=== PATIENT | male | born 1955 | race Hispanic/Latino ===

== ENCOUNTER 2020-06-17 11:10 | Emergency (ER) | payer BC ==
[~2020-06-17] VITALS: Ht 160 cm; Wt 89.8 kg
[2020-06-17 11:38] LABS: BASOPHILS # (AUTO) 0.1 (0.0-0.1); BASOPHILS % 0.7 % (0.0-1.0); EOSINOPHILS # (AUTO) 0.2 (0.0-0.4); EOSINOPHILS % 1.8 % (0.0-6.0); HEMATOCRIT 47.7 % (38.2-49.6); LYMPHOCYTES # (AUTO) 2.4 (1.0-3.2); LYMPHOCYTES % 21.3 % (18.0-39.1); MEAN CORPUSCULAR HEMOGLOBIN 29.6 pg (28-32); MEAN CORPUSCULAR HGB CONC 33.5 g/dL (31-35); MEAN CORPUSCULAR VOLUME 88.3 fL (81-99); MONOCYTES # (AUTO) 0.9 (0.2-0.8); NEUTROPHILS # (AUTO) 7.7 (2.1-6.9); NEUTROPHILS % 67.8 % (38.7-80.0); PLATELET COUNT 289 x10e3/uL (140-360); RED CELL DISTRIBUTION WIDTH 13.7 % (11.7-14.4)
[2020-06-17 11:53] LABS: ALANINE AMINOTRANSFERASE 20 IU/L (0-55); ALBUMIN/GLOBULIN RATIO 0.7 (0.8-2.0); ALKALINE PHOSPHATASE 61 IU/L (40-150); ANION GAP 14.6 mmol/L (8-16); BLOOD UREA NITROGEN 15 mg/dL (7-26); BUN/CREATININE RATIO 15 (6-25); CALCIUM 9.6 mg/dL (8.4-10.2); CARBON DIOXIDE 27 mmol/L (22-29); CHLORIDE 102 mmol/L (98-107); EST GLOMERULAR FILTRATION RATE > 60 ML/MIN (60-); GLUCOSE 99 mg/dL (74-118); POTASSIUM 3.6 mmol/L (3.5-5.1); SODIUM 140 mmol/L (136-145)
[2020-06-17] MEDS ORDERED: KETOROLAC TROMETHAMINE 30 MG/ML VIAL IV PRN (13:30)
[2020-06-17 13:33] LABS: CLARITY,URINE CLEAR (CLEAR); COLOR,URINE YELLOW (YELLOW)
[2020-06-17 13:34] LABS: KETONES,URINE NEGATIVE (NEGATIVE); LEUKOCYTE ESTERASE ,URINE NEGATIVE (NEGATIVE); NITRITE,URINE NEGATIVE (NEGATIVE); PROTEIN,URINE DIPSTICK >=300 (NEGATIVE); URINE UROBILINOGEN 0.2 mg/dL (0.2 - 1)
[2020-06-17 13:44] LABS: BACTERIA,URINE MODERATE /HPF; EPITHELIAL CELLS,URINE RARE /LPF; WBC,URINE (MAN) 0-5 /HPF (0-5)
[2020-06-17] MEDS ORDERED: CEPHALEXIN500 MG PO ×2 (14:05→14:25)
== END 2020-06-17 14:35 | disposition home or self-care (01) ==
LOC: ER 11:20
DX: N39.0 Urinary tract infection, site not specified (principal); I10 Essential (primary) hypertension
CPT/HCPCS: 36415; 74176; 80053; 81001; 83690; 85025; 99284; J1885

== ENCOUNTER → 2020-09-01 | Outpatient (CLI) | payer BC ==
[~2020-09-01] MED LIST: CEPHALEXIN500 MG PO; FUROSEMIDE40 MG PO; METOPROLOL SUCC50 MG PO; POTASSIUM CHLO20 ME1 PO; TRICOR145 MG PO; ZETIA10 MG PO
== END ==
LOC: RAD 13:06
PROVIDERS: ATTEND Family Medicine
DX: R60.9 Edema, unspecified (principal)
CPT/HCPCS: 36415; 85379; 93970

== ENCOUNTER 2020-09-02 10:59 | Inpatient (IN) | payer BC, MEDICARE ==
[~2020-09-02] VITALS: Ht 160 cm; Wt 83.6 kg
[~2020-09-02 10:59] MED LIST changes: -ASPIRIN81 MG PO; -FUROSEMIDE40 MG PO; -IOPAMIDOL 370 MG/ML 200 ML INFUS..BTL INJ ONE; -LOSARTAN POTAS100 MG PO; -METOPROLOL SUCC50 MG PO; -POTASSIUM CHLO20 ME1 PO; -SODIUM CHLORIDE 0.9% 100 ML ONE; -TRICOR145 MG PO; -ZETIA10 MG PO
[2020-09-02 12:13] LABS: BASOPHILS # (AUTO) 0.1 (0.0-0.1); BASOPHILS % 1.1 % (0.0-1.0); EOSINOPHILS # (AUTO) 0.2 (0.0-0.4); EOSINOPHILS % 2.6 % (0.0-6.0); HEMATOCRIT 50.1 % (38.2-49.6); LYMPHOCYTES # (AUTO) 1.8 (1.0-3.2); LYMPHOCYTES % 21.2 % (18.0-39.1); MEAN CORPUSCULAR HGB CONC 33.9 g/dL (31-35); MEAN CORPUSCULAR VOLUME 88.5 fL (81-99); MONOCYTES # (AUTO) 0.6 (0.2-0.8); MONOCYTES % 6.9 % (4.4-11.3); NEUTROPHILS # (AUTO) 5.7 (2.1-6.9); NEUTROPHILS % 67.8 % (38.7-80.0); PLATELET COUNT 249 x10e3/uL (140-360); RED BLOOD COUNT 5.66 x10e6/uL (4.3-5.7); RED CELL DISTRIBUTION WIDTH 13.8 % (11.7-14.4)
[2020-09-02 12:18] LABS: INR 0.74
[2020-09-02 12:25] LABS: ALANINE AMINOTRANSFERASE 19 IU/L (0-55); ALBUMIN 2.3 g/dL (3.5-5.0); ALBUMIN/GLOBULIN RATIO 0.6 (0.8-2.0); ALKALINE PHOSPHATASE 50 IU/L (40-150); ANION GAP 10.2 mmol/L (8-16); BLOOD UREA NITROGEN 16 mg/dL (7-26); BUN/CREATININE RATIO 15 (6-25); CALCIUM 8.9 mg/dL (8.4-10.2); CARBON DIOXIDE 31 mmol/L (22-29); CHLORIDE 102 mmol/L (98-107); CREATININE, SERUM 1.07 mg/dL (0.72-1.25); EST GLOMERULAR FILTRATION RATE > 60 ML/MIN (60-); GLUCOSE 93 mg/dL (74-118); POTASSIUM 4.2 mmol/L (3.5-5.1); SODIUM 139 mmol/L (136-145)
[2020-09-02] MEDS ORDERED: ONDANSETRON HCL INJ 2MG/ML 2ML 2 MG/ML VIAL IV PRN (12:30)
[2020-09-02] MEDS ORDERED: HEPARIN SOD (PORCINE) 1000 UNIT/ML SDV IV NR (13:00)
[2020-09-02] MEDS ORDERED: HEPARIN 25,000 UNIT DRIP IV ONE (13:17)
[2020-09-02] MEDS: HEPARIN 25,000 UNIT 1,300 UNIT in DEXTROSE 5% 250ML 250 ML IV SCH (13:21)
[2020-09-02] MEDS ORDERED: TRICOR145 MG PO (16:14)
[2020-09-02] MEDS ORDERED: ZETIA10 MG PO (16:14)
[2020-09-02] MEDS ORDERED: METOPROLOL SUCC50 MG PO (16:14)
[2020-09-02] MEDS ORDERED: FUROSEMIDE40 MG PO (16:14)
[2020-09-02] MEDS ORDERED: POTASSIUM CHLO20 ME1 PO (16:14)
[2020-09-02] MEDS ORDERED: HYDRALAZINE HCL 20 MG/ML VIAL IV STA (16:19)
[2020-09-02] MEDS ORDERED: HYDRALAZINE HCL 20 MG/ML VIAL ONE (16:31)
[2020-09-02 18:08] VITALS: BP 146/79
[2020-09-02] MEDS: MORPHINE SULFATE INJ 2 MG/ML SYR IV PRN ×2 (18:19→23:58)
[2020-09-02 18:30] VITALS: BP 146/79
[2020-09-02 19:12] VITALS: BP 146/79
[2020-09-02 20:03] VITALS: BP 123/73
[2020-09-02 20:18] VITALS: BP 133/73
[2020-09-02 23:44] VITALS: BP 166/88
[2020-09-03] VITALS (9 sets, daily range): BP systolic 136–192; BP diastolic 73–92
[2020-09-03 05:38] LABS: BASOPHILS # (AUTO) 0.1 (0.0-0.1); EOSINOPHILS # (AUTO) 0.3 (0.0-0.4); EOSINOPHILS % 4.2 % (0.0-6.0); HEMATOCRIT 44.5 % (38.2-49.6); HEMOGLOBIN 15.2 g/dL (14.0-18.0); LYMPHOCYTES # (AUTO) 1.9 (1.0-3.2); LYMPHOCYTES % 24.7 % (18.0-39.1); MEAN CORPUSCULAR HEMOGLOBIN 29.9 pg (28-32); MEAN CORPUSCULAR HGB CONC 34.2 g/dL (31-35); MEAN CORPUSCULAR VOLUME 87.6 fL (81-99); MONOCYTES # (AUTO) 0.6 (0.2-0.8); MONOCYTES % 7.5 % (4.4-11.3); NEUTROPHILS # (AUTO) 4.8 (2.1-6.9); NEUTROPHILS % 62.3 % (38.7-80.0); PLATELET COUNT 221 x10e3/uL (140-360); RED BLOOD COUNT 5.08 x10e6/uL (4.3-5.7); RED CELL DISTRIBUTION WIDTH 13.6 % (11.7-14.4)
[2020-09-03] MEDS: MORPHINE SULFATE INJ 2 MG/ML SYR IV PRN ×3 (05:44→13:46)
[2020-09-03 06:01] LABS: ALANINE AMINOTRANSFERASE 18 IU/L (0-55); ALBUMIN 1.9 g/dL (3.5-5.0); ALBUMIN/GLOBULIN RATIO 0.5 (0.8-2.0); ALKALINE PHOSPHATASE 45 IU/L (40-150); ANION GAP 12.8 mmol/L (8-16); BLOOD UREA NITROGEN 20 mg/dL (7-26); BUN/CREATININE RATIO 22 (6-25); CARBON DIOXIDE 25 mmol/L (22-29); CHLORIDE 106 mmol/L (98-107); CREATININE, SERUM 0.91 mg/dL (0.72-1.25); EST GLOMERULAR FILTRATION RATE > 60 ML/MIN (60-); GLUCOSE 100 mg/dL (74-118); POTASSIUM 3.8 mmol/L (3.5-5.1); SODIUM 140 mmol/L (136-145)
[2020-09-03] MEDS: EZETIMIBE 10 MG TAB PO SCH (08:37)
[2020-09-03] MEDS: METOPROLOL SUCCINATE 50 MG TAB XL PO SCH (08:37)
[2020-09-03] MEDS: FENOFIBRATE 145 MG TAB PO SCH (08:37)
[2020-09-03 19:27] LABS: CLARITY,URINE CLEAR (CLEAR); COLOR,URINE YELLOW (YELLOW); KETONES,URINE NEGATIVE (NEGATIVE); LEUKOCYTE ESTERASE ,URINE NEGATIVE (NEGATIVE); NITRITE,URINE NEGATIVE (NEGATIVE); PROTEIN,URINE DIPSTICK >=300 (NEGATIVE); URINE UROBILINOGEN 0.2 mg/dL (0.2 - 1)
[2020-09-03 19:37] LABS: BACTERIA,URINE RARE /HPF
[2020-09-04] VITALS (11 sets, daily range): BP systolic 137–171; BP diastolic 78–98
[2020-09-04] MEDS: HEPARIN 25,000 UNIT 1,300 UNIT in DEXTROSE 5% 250ML 250 ML IV SCH (05:55)
[2020-09-04 06:33] LABS: BASOPHILS # (AUTO) 0.1 (0.0-0.1); BASOPHILS % 1.1 % (0.0-1.0); EOSINOPHILS # (AUTO) 0.4 (0.0-0.4); EOSINOPHILS % 6.2 % (0.0-6.0); HEMATOCRIT 44.2 % (38.2-49.6); HEMOGLOBIN 14.7 g/dL (14.0-18.0); LYMPHOCYTES # (AUTO) 2.2 (1.0-3.2); LYMPHOCYTES % 30.4 % (18.0-39.1); MEAN CORPUSCULAR HEMOGLOBIN 29.4 pg (28-32); MEAN CORPUSCULAR HGB CONC 33.3 g/dL (31-35); MEAN CORPUSCULAR VOLUME 88.4 fL (81-99); MONOCYTES # (AUTO) 0.6 (0.2-0.8); MONOCYTES % 8.8 % (4.4-11.3); NEUTROPHILS # (AUTO) 3.8 (2.1-6.9); NEUTROPHILS % 53.1 % (38.7-80.0); PLATELET COUNT 241 x10e3/uL (140-360); RED CELL DISTRIBUTION WIDTH 13.8 % (11.7-14.4)
[2020-09-04 06:49] LABS: ALANINE AMINOTRANSFERASE 20 IU/L (0-55); ALBUMIN 1.8 g/dL (3.5-5.0); ALBUMIN/GLOBULIN RATIO 0.5 (0.8-2.0); ALKALINE PHOSPHATASE 38 IU/L (40-150); BLOOD UREA NITROGEN 16 mg/dL (7-26); BUN/CREATININE RATIO 19 (6-25); CALCIUM 7.8 mg/dL (8.4-10.2); CARBON DIOXIDE 27 mmol/L (22-29); CHLORIDE 107 mmol/L (98-107); CREATININE, SERUM 0.86 mg/dL (0.72-1.25); EST GLOMERULAR FILTRATION RATE > 60 ML/MIN (60-); GLUCOSE 86 mg/dL (74-118); SODIUM 140 mmol/L (136-145)
[2020-09-04] MEDS ORDERED: ONDANSETRON HCL 4 MG ORAL DISINTEGRATING TAB PO PRN (08:15)
[2020-09-04] MEDS: FENOFIBRATE 145 MG TAB PO SCH (08:46)
[2020-09-04] MEDS: EZETIMIBE 10 MG TAB PO SCH (08:46)
[2020-09-04] MEDS: METOPROLOL SUCCINATE 50 MG TAB XL PO SCH (08:46)
[2020-09-04 13:48] LABS: CLARITY,URINE CLEAR (CLEAR); COLOR,URINE YELLOW (YELLOW); LEUKOCYTE ESTERASE ,URINE NEGATIVE (NEGATIVE); NITRITE,URINE NEGATIVE (NEGATIVE); PROTEIN,URINE DIPSTICK >=300 (NEGATIVE)
[2020-09-04 13:49] LABS: KETONES,URINE NEGATIVE (NEGATIVE); URINE UROBILINOGEN 0.2 mg/dL (0.2 - 1)
[2020-09-04 14:04] LABS: BACTERIA,URINE RARE /HPF; EPITHELIAL CELLS,URINE RARE /LPF; WBC,URINE (MAN) 0-5 /HPF (0-5)
[2020-09-04 14:19] LABS: CREATININE,URINE RANDOM 33.41 mg/dL (63-166)
[2020-09-04 15:08] LABS: TOTAL PROTEIN, URINE 356.5 mg/dL (1-14)
[2020-09-04] MEDS ORDERED: LOSARTAN POTAS100 MG PO (16:54)
[2020-09-04] MEDS: LOSARTAN POTASSIUM 100 MG TAB PO SCH (17:16)
[2020-09-05] VITALS (8 sets, daily range): BP systolic 125–180; BP diastolic 71–93
[2020-09-05] MEDS: HEPARIN 25,000 UNIT 1,300 UNIT in DEXTROSE 5% 250ML 250 ML IV SCH ×2 (00:30→11:08)
[2020-09-05] MEDS: CLONIDINE HCL 0.1 MG TAB PO PRN (06:10)
[2020-09-05 06:26] LABS: ALANINE AMINOTRANSFERASE 25 IU/L (0-55); ALBUMIN 1.9 g/dL (3.5-5.0); ALBUMIN/GLOBULIN RATIO 0.6 (0.8-2.0); ALKALINE PHOSPHATASE 40 IU/L (40-150); ANION GAP 10.1 mmol/L (8-16); BLOOD UREA NITROGEN 14 mg/dL (7-26); BUN/CREATININE RATIO 18 (6-25); CALCIUM 8.1 mg/dL (8.4-10.2); CARBON DIOXIDE 26 mmol/L (22-29); CHLORIDE 107 mmol/L (98-107); CREATININE, SERUM 0.78 mg/dL (0.72-1.25); EST GLOMERULAR FILTRATION RATE > 60 ML/MIN (60-); GLUCOSE 93 mg/dL (74-118); POTASSIUM 4.1 mmol/L (3.5-5.1); SODIUM 139 mmol/L (136-145)
[2020-09-05] MEDS: LOSARTAN POTASSIUM 100 MG TAB PO SCH (08:22)
[2020-09-05] MEDS: EZETIMIBE 10 MG TAB PO SCH (08:23)
[2020-09-05] MEDS: METOPROLOL SUCCINATE 50 MG TAB XL PO SCH (08:23)
[2020-09-05] MEDS: FENOFIBRATE 145 MG TAB PO SCH (08:23)
[2020-09-05 09:19] LABS: BASOPHILS # (AUTO) 0.1 (0.0-0.1); BASOPHILS % 1.1 % (0.0-1.0); EOSINOPHILS # (AUTO) 0.4 (0.0-0.4); EOSINOPHILS % 6.2 % (0.0-6.0); HEMATOCRIT 45.6 % (38.2-49.6); HEMOGLOBIN 15.2 g/dL (14.0-18.0); LYMPHOCYTES # (AUTO) 1.9 (1.0-3.2); LYMPHOCYTES % 28.6 % (18.0-39.1); MEAN CORPUSCULAR HEMOGLOBIN 29.6 pg (28-32); MEAN CORPUSCULAR HGB CONC 33.3 g/dL (31-35); MEAN CORPUSCULAR VOLUME 88.7 fL (81-99); MONOCYTES # (AUTO) 0.6 (0.2-0.8); MONOCYTES % 8.5 % (4.4-11.3); NEUTROPHILS # (AUTO) 3.7 (2.1-6.9); NEUTROPHILS % 55.3 % (38.7-80.0); PLATELET COUNT 256 x10e3/uL (140-360); RED BLOOD COUNT 5.14 x10e6/uL (4.3-5.7); RED CELL DISTRIBUTION WIDTH 13.6 % (11.7-14.4)
[2020-09-05 14:42] LABS: HIV 1&2 AB SCREEN NON-REACTIVE (NONREACTIVE)
[2020-09-06] VITALS (8 sets, daily range): BP systolic 124–156; BP diastolic 69–83
[2020-09-06 06:50] LABS: BASOPHILS # (AUTO) 0.1 (0.0-0.1); BASOPHILS % 0.8 % (0.0-1.0); EOSINOPHILS # (AUTO) 0.4 (0.0-0.4); EOSINOPHILS % 5.9 % (0.0-6.0); HEMATOCRIT 43.3 % (38.2-49.6); HEMOGLOBIN 14.4 g/dL (14.0-18.0); LYMPHOCYTES % 31.3 % (18.0-39.1); MEAN CORPUSCULAR HEMOGLOBIN 29.4 pg (28-32); MEAN CORPUSCULAR HGB CONC 33.3 g/dL (31-35); MEAN CORPUSCULAR VOLUME 88.4 fL (81-99); MONOCYTES # (AUTO) 0.5 (0.2-0.8); MONOCYTES % 8.3 % (4.4-11.3); NEUTROPHILS # (AUTO) 3.4 (2.1-6.9); NEUTROPHILS % 53.2 % (38.7-80.0); PLATELET COUNT 260 x10e3/uL (140-360); RED CELL DISTRIBUTION WIDTH 13.7 % (11.7-14.4)
[2020-09-06] MEDS: LOSARTAN POTASSIUM 100 MG TAB PO SCH (09:26)
[2020-09-06] MEDS: FENOFIBRATE 145 MG TAB PO SCH (09:28)
[2020-09-06] MEDS: EZETIMIBE 10 MG TAB PO SCH (09:28)
[2020-09-06] MEDS: METOPROLOL SUCCINATE 50 MG TAB XL PO SCH (09:28)
[2020-09-06] MEDS ORDERED: ASPIRIN81 MG PO (09:33)
[2020-09-06] MEDS: HEPARIN 25,000 UNIT 1,300 UNIT in DEXTROSE 5% 250ML 250 ML IV SCH (22:30)
[2020-09-07] VITALS (7 sets, daily range): BP systolic 141–158; BP diastolic 79–86
[2020-09-07 07:09] LABS: BASOPHILS # (AUTO) 0.1 (0.0-0.1); BASOPHILS % 1.1 % (0.0-1.0); EOSINOPHILS # (AUTO) 0.4 (0.0-0.4); EOSINOPHILS % 6.4 % (0.0-6.0); HEMATOCRIT 44.4 % (38.2-49.6); HEMOGLOBIN 14.8 g/dL (14.0-18.0); LYMPHOCYTES % 30.5 % (18.0-39.1); MEAN CORPUSCULAR HEMOGLOBIN 29.8 pg (28-32); MEAN CORPUSCULAR HGB CONC 33.3 g/dL (31-35); MEAN CORPUSCULAR VOLUME 89.3 fL (81-99); MONOCYTES # (AUTO) 0.5 (0.2-0.8); NEUTROPHILS # (AUTO) 3.4 (2.1-6.9); NEUTROPHILS % 53.5 % (38.7-80.0); PLATELET COUNT 280 x10e3/uL (140-360); RED BLOOD COUNT 4.97 x10e6/uL (4.3-5.7); RED CELL DISTRIBUTION WIDTH 13.9 % (11.7-14.4)
[2020-09-07] MEDS: LOSARTAN POTASSIUM 100 MG TAB PO SCH (09:00)
[2020-09-07] MEDS: FENOFIBRATE 145 MG TAB PO SCH (09:00)
[2020-09-07] MEDS: METOPROLOL SUCCINATE 50 MG TAB XL PO SCH (09:00)
[2020-09-07] MEDS: EZETIMIBE 10 MG TAB PO SCH (09:00)
[2020-09-07 13:28] LABS: CLARITY,URINE CLEAR (CLEAR); COLOR,URINE YELLOW (YELLOW); KETONES,URINE NEGATIVE (NEGATIVE); LEUKOCYTE ESTERASE ,URINE NEGATIVE (NEGATIVE); NITRITE,URINE NEGATIVE (NEGATIVE); PROTEIN,URINE DIPSTICK >=300 (NEGATIVE); URINE UROBILINOGEN 0.2 mg/dL (0.2 - 1)
[2020-09-07 13:47] LABS: BACTERIA,URINE RARE /HPF; RBC,URINE 0-5 /HPF (0-5); WBC,URINE (MAN) 0-5 /HPF (0-5)
[2020-09-07] MEDS: HEPARIN 25,000 UNIT 1,300 UNIT in DEXTROSE 5% 250ML 250 ML IV SCH (21:55)
[2020-09-08] VITALS (7 sets, daily range): BP systolic 120–150; BP diastolic 76–99
[2020-09-08 07:05] LABS: BASOPHILS # (AUTO) 0.1 (0.0-0.1); BASOPHILS % 0.9 % (0.0-1.0); EOSINOPHILS # (AUTO) 0.5 (0.0-0.4); EOSINOPHILS % 6.6 % (0.0-6.0); HEMATOCRIT 47.3 % (38.2-49.6); HEMOGLOBIN 15.8 g/dL (14.0-18.0); LYMPHOCYTES # (AUTO) 2.2 (1.0-3.2); LYMPHOCYTES % 29.7 % (18.0-39.1); MEAN CORPUSCULAR HEMOGLOBIN 29.9 pg (28-32); MEAN CORPUSCULAR HGB CONC 33.4 g/dL (31-35); MEAN CORPUSCULAR VOLUME 89.4 fL (81-99); MONOCYTES # (AUTO) 0.6 (0.2-0.8); MONOCYTES % 7.7 % (4.4-11.3); NEUTROPHILS # (AUTO) 4.1 (2.1-6.9); NEUTROPHILS % 54.8 % (38.7-80.0); PLATELET COUNT 247 x10e3/uL (140-360); RED BLOOD COUNT 5.29 x10e6/uL (4.3-5.7); RED CELL DISTRIBUTION WIDTH 13.8 % (11.7-14.4)
[2020-09-08] MEDS: FENOFIBRATE 145 MG TAB PO SCH (08:49)
[2020-09-08] MEDS: METOPROLOL SUCCINATE 50 MG TAB XL PO SCH (08:49)
[2020-09-08] MEDS: EZETIMIBE 10 MG TAB PO SCH (08:49)
[2020-09-08] MEDS: LOSARTAN POTASSIUM 100 MG TAB PO SCH (08:49)
[2020-09-08] MEDS: HEPARIN 25,000 UNIT 1,300 UNIT in DEXTROSE 5% 250ML 250 ML IV SCH (17:42)
[2020-09-09] VITALS (9 sets, daily range): BP systolic 121–144; BP diastolic 68–83
[2020-09-09] MEDS: METOPROLOL SUCCINATE 50 MG TAB XL PO SCH (09:36)
[2020-09-09] MEDS: EZETIMIBE 10 MG TAB PO SCH (09:36)
[2020-09-09] MEDS: FENOFIBRATE 145 MG TAB PO SCH (09:36)
[2020-09-09] MEDS: LOSARTAN POTASSIUM 100 MG TAB PO SCH (09:36)
[2020-09-09 12:11] LABS: ALPHA 2 GLOBULIN URINE PEP 9.9 % (.)
[2020-09-10] VITALS (8 sets, daily range): BP systolic 117–149; BP diastolic 74–100
[2020-09-10] MEDS: LOSARTAN POTASSIUM 100 MG TAB PO SCH (09:00)
[2020-09-10] MEDS: METOPROLOL SUCCINATE 50 MG TAB XL PO SCH (09:34)
[2020-09-10] MEDS: CLONIDINE HCL 0.1 MG TAB PO PRN (11:30)
[2020-09-10] MEDS ORDERED: MIDAZOLAM HCL 2 MG/2 ML VIAL ONE (12:37)
[2020-09-10] MEDS ORDERED: FENTANYL CITRATE/PF 100MCG/2 ML INJ ONE (12:37)
[2020-09-10] MEDS: MORPHINE SULFATE INJ 2 MG/ML SYR IV PRN ×2 (16:20→23:00)
[2020-09-10] MEDS: EZETIMIBE 10 MG TAB PO SCH (17:41)
[2020-09-10] MEDS: FENOFIBRATE 145 MG TAB PO SCH (17:41)
[2020-09-11] VITALS (8 sets, daily range): BP systolic 130–146; BP diastolic 68–82
[2020-09-11] MEDS: MORPHINE SULFATE INJ 2 MG/ML SYR IV PRN (02:30)
[2020-09-11] MEDS ORDERED: HYDROMORPHONE 1MG/1ML INJ IV PRN (04:45)
[2020-09-11 05:54] LABS: BASOPHILS % 0.4 % (0.0-1.0); EOSINOPHILS # (AUTO) 0.1 (0.0-0.4); EOSINOPHILS % 1.4 % (0.0-6.0); HEMOGLOBIN 13.8 g/dL (14.0-18.0); LYMPHOCYTES # (AUTO) 1.1 (1.0-3.2); LYMPHOCYTES % 10.6 % (18.0-39.1); MEAN CORPUSCULAR HEMOGLOBIN 29.7 pg (28-32); MEAN CORPUSCULAR HGB CONC 33.7 g/dL (31-35); MEAN CORPUSCULAR VOLUME 88.2 fL (81-99); MONOCYTES # (AUTO) 0.9 (0.2-0.8); MONOCYTES % 8.9 % (4.4-11.3); NEUTROPHILS # (AUTO) 7.8 (2.1-6.9); NEUTROPHILS % 78.4 % (38.7-80.0); PLATELET COUNT 182 x10e3/uL (140-360); RED BLOOD COUNT 4.65 x10e6/uL (4.3-5.7); RED CELL DISTRIBUTION WIDTH 13.6 % (11.7-14.4)
[2020-09-11 06:16] LABS: ALBUMIN 2.1 g/dL (3.5-5.0); ALBUMIN/GLOBULIN RATIO 0.7 (0.8-2.0); ANION GAP 11.6 mmol/L (8-16); CREATININE, SERUM 1.54 mg/dL (0.72-1.25); POTASSIUM 4.6 mmol/L (3.5-5.1)
[2020-09-11] MEDS: FENOFIBRATE 145 MG TAB PO SCH ×3 (09:15→11:26)
[2020-09-11] MEDS: EZETIMIBE 10 MG TAB PO SCH ×3 (09:15→11:26)
[2020-09-11] MEDS: METOPROLOL SUCCINATE 50 MG TAB XL PO SCH ×2 (09:15→09:40)
[2020-09-11] MEDS: LOSARTAN POTASSIUM 100 MG TAB PO SCH ×2 (09:15→09:40)
[2020-09-11] MEDS ORDERED: SODIUM CHLORIDE 0.9% 1000ML 1,000 ML IV ONE (14:15)
[2020-09-11 15:22] LABS: INR 0.81; PROTHROMBIN TIME 11.7 seconds (11.9-14.5)
[2020-09-11] MEDS: HYDROCODONE/APAP 10MG-325MG TAB PO PRN (17:24)
[2020-09-11] MEDS: WARFARIN SOD 5 MG TAB PO SCH (17:26)
[2020-09-12] VITALS (8 sets, daily range): BP systolic 141–154; BP diastolic 77–87
[2020-09-12 06:57] LABS: INR 0.88; PROTHROMBIN TIME 12.5 seconds (11.9-14.5)
[2020-09-12] MEDS: EZETIMIBE 10 MG TAB PO SCH (08:24)
[2020-09-12] MEDS: AMLODIPINE BESYLATE 10 MG TAB PO SCH (08:24)
[2020-09-12] MEDS: METOPROLOL SUCCINATE 50 MG TAB XL PO SCH (08:24)
[2020-09-12] MEDS: HYDROCODONE/APAP 10MG-325MG TAB PO PRN (12:17)
[2020-09-12] MEDS: WARFARIN SOD 5 MG TAB PO SCH (17:09)
[2020-09-13] VITALS (7 sets, daily range): BP systolic 126–152; BP diastolic 74–88
[2020-09-13 06:34] LABS: INR 1.4; PROTHROMBIN TIME 17.8 seconds (11.9-14.5)
[2020-09-13 06:42] LABS: ANION GAP 11.4 mmol/L (8-16); CREATININE, SERUM 1.57 mg/dL (0.72-1.25); POTASSIUM 4.4 mmol/L (3.5-5.1)
[2020-09-13] MEDS: METOPROLOL SUCCINATE 50 MG TAB XL PO SCH (08:09)
[2020-09-13] MEDS: AMLODIPINE BESYLATE 10 MG TAB PO SCH (08:09)
[2020-09-13] MEDS: EZETIMIBE 10 MG TAB PO SCH (08:09)
[2020-09-13] MEDS: WARFARIN SOD 5 MG TAB PO SCH (17:00)
[2020-09-14] VITALS (8 sets, daily range): BP systolic 113–146; BP diastolic 65–95
[2020-09-14 05:39] LABS: BASOPHILS # (AUTO) 0.1 (0.0-0.1); BASOPHILS % 0.6 % (0.0-1.0); EOSINOPHILS # (AUTO) 0.3 (0.0-0.4); EOSINOPHILS % 3.5 % (0.0-6.0); HEMATOCRIT 43.4 % (38.2-49.6); HEMOGLOBIN 14.9 g/dL (14.0-18.0); LYMPHOCYTES # (AUTO) 1.9 (1.0-3.2); LYMPHOCYTES % 22.1 % (18.0-39.1); MEAN CORPUSCULAR HEMOGLOBIN 29.7 pg (28-32); MEAN CORPUSCULAR HGB CONC 34.3 g/dL (31-35); MEAN CORPUSCULAR VOLUME 86.6 fL (81-99); MONOCYTES # (AUTO) 0.8 (0.2-0.8); NEUTROPHILS # (AUTO) 5.5 (2.1-6.9); NEUTROPHILS % 64.4 % (38.7-80.0); PLATELET COUNT 180 x10e3/uL (140-360); RED BLOOD COUNT 5.01 x10e6/uL (4.3-5.7); RED CELL DISTRIBUTION WIDTH 13.4 % (11.7-14.4)
[2020-09-14 05:48] LABS: INR 2.13; PROTHROMBIN TIME 24.6 seconds (11.9-14.5)
[2020-09-14 05:56] LABS: ANION GAP 14.3 mmol/L (8-16); BLOOD UREA NITROGEN 21 mg/dL (7-26); BUN/CREATININE RATIO 18 (6-25); CALCIUM 8.4 mg/dL (8.4-10.2); CARBON DIOXIDE 23 mmol/L (22-29); CHLORIDE 106 mmol/L (98-107); CREATININE, SERUM 1.16 mg/dL (0.72-1.25); EST GLOMERULAR FILTRATION RATE > 60 ML/MIN (60-); GLUCOSE 96 mg/dL (74-118); POTASSIUM 4.3 mmol/L (3.5-5.1); SODIUM 139 mmol/L (136-145)
[2020-09-14] MEDS: EZETIMIBE 10 MG TAB PO SCH (09:51)
[2020-09-14] MEDS: AMLODIPINE BESYLATE 10 MG TAB PO SCH (09:51)
[2020-09-14] MEDS: METOPROLOL SUCCINATE 50 MG TAB XL PO SCH (09:51)
[2020-09-14] MEDS: WARFARIN SOD 5 MG TAB PO SCH (17:06)
[2020-09-15 04:30] VITALS: BP 140/8
[2020-09-15 06:10] LABS: INR 3.16; PROTHROMBIN TIME 33.2 seconds (11.9-14.5)
[2020-09-15 07:48] VITALS: BP 138/73
[2020-09-15 08:23] VITALS: BP 138/73
[2020-09-15] MEDS: AMLODIPINE BESYLATE 10 MG TAB PO SCH (08:52)
[2020-09-15] MEDS: EZETIMIBE 10 MG TAB PO SCH (08:52)
[2020-09-15] MEDS: METOPROLOL SUCCINATE 50 MG TAB XL PO SCH (08:52)
[2020-09-15 11:48] VITALS: BP 133/82
== END 2020-09-15 13:20 | disposition home or self-care (01) | DRG 698 ==
LOC: ER 12:10 → ERHOLD 12:34 → MED/SURG3 17:30
PROVIDERS: ADMIT Internal Medicine; ATTEND Internal Medicine
PROC: 0TB03ZX Excision of Right Kidney, Percutaneous Approach, Diagnostic (ICD-10-PCS; principal; 2020-09-10)
DX: I82.3 Embolism and thrombosis of renal vein (principal); I82.220 Acute embolism and thrombosis of inferior vena cava; I82.409 Acute embolism and thrombosis of unspecified deep veins of unspecified lower extremity; N05.2 Unspecified nephritic syndrome with diffuse membranous glomerulonephritis; Z20.822 Contact with and (suspected) exposure to COVID-19; N17.9 Acute kidney failure, unspecified; E11.9 Type 2 diabetes mellitus without complications; E66.01 Morbid (severe) obesity due to excess calories; I10 Essential (primary) hypertension; Z68.35 Body mass index [BMI] 35.0-35.9, adult; M32.9 Systemic lupus erythematosus, unspecified; K76.0 Fatty (change of) liver, not elsewhere classified; E88.09 Other disorders of plasma-protein metabolism, not elsewhere classified; K57.30 Diverticulosis of large intestine without perforation or abscess without bleeding
CPT/HCPCS: 36415; 50200; 74470; 76770; 76942; 80048; 80053; 81001; 81241; 81400; 82043; 82570; 82948; 83516; 83735; 84156; 84166; 85025; 85303; 85306; 85379; 85610; 85730; 86039; 86160; 86225; 86235; 86255; 86256; 86335; 86376; 86431; 86706; 87390; 93005; 93925; 93976; 99284; G0433; G0435; J0360; J1170; J1644; J2250; J2270; J2405; J3010; J7030; Q0162; U0002

== ENCOUNTER → 2020-09-02 | Outpatient (CLI) | payer BC ==
[~2020-09-02] MED LIST changes: +ASPIRIN81 MG PO; +IOPAMIDOL 370 MG/ML 200 ML INFUS..BTL INJ ONE; +LOSARTAN POTAS100 MG PO; +SODIUM CHLORIDE 0.9% 100 ML ONE
[2020-09-02 09:28] LABS: BLOOD UREA NITROGEN 17 mg/dL (7-26); BUN/CREATININE RATIO 17 (6-25); EST GLOMERULAR FILTRATION RATE > 60 ML/MIN (60-)
== END ==
LOC: CT 08:31
PROVIDERS: ATTEND Family Medicine
DX: R60.9 Edema, unspecified (principal); M71.22 Synovial cyst of popliteal space [Baker], left knee; K76.0 Fatty (change of) liver, not elsewhere classified
CPT/HCPCS: 36415; 75635; 82565; 84520; J7050; Q9967

== ENCOUNTER 2021-11-03 13:15 | Inpatient (IN) | payer MEDICARE, BC ==
[~2021-11-03] VITALS: Ht 167.6 cm; Wt 81.6 kg
[~2021-11-03 13:15] MED LIST changes: +ASPIRIN81 MG PO; +FUROSEMIDE40 MG PO; +LOSARTAN POTAS100 MG PO; +METOPROLOL SUCC50 MG PO; +POTASSIUM CHLO20 ME1 PO; +TRICOR145 MG PO; +ZETIA10 MG PO
[2021-11-03] MEDS ORDERED: ONDANSETRON HCL INJ 2MG/ML 2ML 2 MG/ML VIAL IV PRN (13:45)
[2021-11-03] MEDS ORDERED: SODIUM CHLORIDE 0.9% 1000ML 1,000 ML IV ONE (13:45)
[2021-11-03] MEDS ORDERED: SODIUM CHLORIDE FLUSH 10 ML SYR IV PRN (13:45)
[2021-11-03 13:48] LABS: BASOPHILS # (AUTO) 0.1 (0.0-0.1); BASOPHILS % 0.4 % (0.0-1.0); EOSINOPHILS # (AUTO) 0.1 (0.0-0.4); EOSINOPHILS % 0.8 % (0.0-6.0); HEMATOCRIT 37.5 % (38.2-49.6); HEMOGLOBIN 12.3 g/dL (14.0-18.0); LYMPHOCYTES # (AUTO) 1.2 (1.0-3.2); LYMPHOCYTES % 9.8 % (18.0-39.1); MEAN CORPUSCULAR HEMOGLOBIN 29.8 pg (28-32); MEAN CORPUSCULAR HGB CONC 32.8 g/dL (31-35); MEAN CORPUSCULAR VOLUME 90.8 fL (81-99); MONOCYTES # (AUTO) 0.6 (0.2-0.8); NEUTROPHILS # (AUTO) 9.9 (2.1-6.9); NEUTROPHILS % 83.6 % (38.7-80.0); PLATELET COUNT 279 x10e3/uL (140-360); RED BLOOD COUNT 4.13 x10e6/uL (4.3-5.7); RED CELL DISTRIBUTION WIDTH 14.3 % (11.7-14.4)
[2021-11-03] MEDS: Morphine 4mg INJECTION 4 MG/ML INJ IV PRN ×2 (13:52→21:40)
[2021-11-03 13:53] LABS: INR 2.09; PROTHROMBIN TIME 25.1 seconds (11.9-14.5)
[2021-11-03 14:02] LABS: ALBUMIN 3.3 g/dL (3.5-5.0); ALBUMIN/GLOBULIN RATIO 0.9 (0.8-2.0); ANION GAP 15.5 mmol/L (8-16); CREATININE, SERUM 1.77 mg/dL (0.72-1.25); POTASSIUM 4.5 mmol/L (3.5-5.1)
[2021-11-03] MEDS ORDERED: IOPAMIDOL 370 MG/ML 100 ML INFUS..BTL INJ ONE (14:39)
[2021-11-03 14:56] LABS: LIPASE 8314 U/L (8-78)
[2021-11-03] MEDS ORDERED: Morphine 4mg INJECTION 4 MG/ML INJ IV PRN (16:15)
[2021-11-03] MEDS: SODIUM CHLORIDE 0.9% 1000ML 1,000 ML IV SCH ×2 (16:41→21:18)
[2021-11-03 18:33] LABS: CHOL/HDL RATIO 4.6 (3.9-4.7)
[2021-11-03 20:00] VITALS: BP 118/74
[2021-11-03 21:00] VITALS: BP 118/74
[2021-11-03] MEDS: ONDANSETRON HCL INJ 2MG/ML 2ML 2 MG/ML VIAL IV PRN (21:40)
[2021-11-03 22:41] LABS: CLARITY,URINE CLEAR (CLEAR); COLOR,URINE YELLOW (YELLOW); KETONES,URINE NEGATIVE (NEGATIVE); LEUKOCYTE ESTERASE ,URINE NEGATIVE (NEGATIVE); NITRITE,URINE NEGATIVE (NEGATIVE); PROTEIN,URINE DIPSTICK 2+ (NEGATIVE); URINE UROBILINOGEN 0.2 mg/dL (0.2 - 1)
[2021-11-03 22:46] VITALS: BP 118/74
[2021-11-03] MEDS ORDERED: CLONIDINE HCL0.1 MG PO (22:46)
[2021-11-03] MEDS ORDERED: CYCLOSPORINE25 MG PO (22:46)
[2021-11-03 22:47] LABS: AMORPHOUS SEDIMENT,URINE FEW (FEW); BACTERIA,URINE FEW /HPF; EPITHELIAL CELLS,URINE RARE /LPF; RBC,URINE 0-5 /HPF (0-5); WBC,URINE (MAN) 0-5 /HPF (0-5)
[2021-11-04] VITALS (8 sets, daily range): BP systolic 145–166; BP diastolic 75–83
[2021-11-04] MEDS: SODIUM CHLORIDE 0.9% 1000ML 1,000 ML IV SCH (00:50)
[2021-11-04] MEDS: LACTATED RINGER'S 1,000 ML INJ SCH ×6 (01:45→22:20)
[2021-11-04 02:51] LABS: % IRON SATURATION 21 % (15-50); IRON 73 ug/dL (65-175); TOTAL IRON BINDING CAPACITY 343 ug/dL (261-478); TRANSFERRIN 245 mg/dL (174-364)
[2021-11-04 07:01] LABS: BASOPHILS % 0.4 % (0.0-1.0); EOSINOPHILS # (AUTO) 0.4 (0.0-0.4); EOSINOPHILS % 4.4 % (0.0-6.0); HEMATOCRIT 32.5 % (38.2-49.6); HEMOGLOBIN 10.4 g/dL (14.0-18.0); LYMPHOCYTES % 11.3 % (18.0-39.1); MEAN CORPUSCULAR HEMOGLOBIN 29.8 pg (28-32); MEAN CORPUSCULAR VOLUME 93.1 fL (81-99); MONOCYTES # (AUTO) 0.6 (0.2-0.8); MONOCYTES % 6.8 % (4.4-11.3); NEUTROPHILS # (AUTO) 7.1 (2.1-6.9); NEUTROPHILS % 76.8 % (38.7-80.0); PLATELET COUNT 250 x10e3/uL (140-360); RED BLOOD COUNT 3.49 x10e6/uL (4.3-5.7)
[2021-11-04 07:13] LABS: INR 1.75; PROTHROMBIN TIME 21.8 seconds (11.9-14.5)
[2021-11-04 07:35] LABS: ALBUMIN 2.8 g/dL (3.5-5.0); ALBUMIN/GLOBULIN RATIO 1.1 (0.8-2.0); ANION GAP 10.9 mmol/L (8-16); CALCIUM 7.8 mg/dL (8.4-10.2); CREATININE, SERUM 1.43 mg/dL (0.72-1.25); POTASSIUM 3.9 mmol/L (3.5-5.1)
[2021-11-04] MEDS: ONDANSETRON HCL INJ 2MG/ML 2ML 2 MG/ML VIAL IV PRN ×3 (08:37→18:29)
[2021-11-04] MEDS: Morphine 4mg INJECTION 4 MG/ML INJ IV PRN ×3 (08:38→18:29)
[2021-11-05] VITALS (8 sets, daily range): BP systolic 149–161; BP diastolic 71–86
[2021-11-05] MEDS: LACTATED RINGER'S 1,000 ML INJ SCH ×6 (01:56→17:56)
[2021-11-05 06:54] LABS: INR 1.47; PROTHROMBIN TIME 19.1 seconds (11.9-14.5)
[2021-11-05] MEDS: Morphine 4mg INJECTION 4 MG/ML INJ IV PRN (15:36)
[2021-11-05] MEDS: ONDANSETRON HCL INJ 2MG/ML 2ML 2 MG/ML VIAL IV PRN (15:36)
[2021-11-06] VITALS (7 sets, daily range): BP systolic 157–169; BP diastolic 81–88
[2021-11-06] MEDS: LACTATED RINGER'S 1,000 ML INJ SCH ×2 (01:10→05:39)
[2021-11-06] MEDS: HYDRALAZINE HCL 20 MG/ML VIAL IV PRN (06:31)
[2021-11-06 07:07] LABS: ALBUMIN 2.2 g/dL (3.5-5.0); ALBUMIN/GLOBULIN RATIO 0.7 (0.8-2.0); ANION GAP 11.6 mmol/L (8-16); CALCIUM 7.9 mg/dL (8.4-10.2); CREATININE, SERUM 1.36 mg/dL (0.72-1.25); POTASSIUM 3.6 mmol/L (3.5-5.1)
[2021-11-06] MEDS ORDERED: ENOXAPARIN INJ 80 MG/0.8 ML SYR SC SCH (11:30)
[2021-11-06] MEDS ORDERED: WARFARIN SOD 2 MG TAB PO SCH (17:00)
[2021-11-06] MEDS: ACETAMINOPHEN 325 MG TAB PO PRN (20:55)
[2021-11-06] MEDS: ONDANSETRON HCL INJ 2MG/ML 2ML 2 MG/ML VIAL IV PRN (20:55)
[2021-11-07] VITALS (9 sets, daily range): BP systolic 141–170; BP diastolic 78–87
[2021-11-07 07:22] LABS: INR 1.11; PROTHROMBIN TIME 15.3 seconds (11.9-14.5)
[2021-11-07] MEDS ORDERED: BUPIVACAINE 0.25% 30ML SDV ONE (08:13)
[2021-11-07] MEDS ORDERED: LIDOCAINE 1% W/EPINEPHRINE 20 ML VIAL ONE (08:13)
[2021-11-07] MEDS: KCL 20MEQ/.9 SOD CHL 1,000 ML IV SCH ×2 (10:54→23:36)
[2021-11-07] MEDS ORDERED: SEVOFLURANE INHAL SOLN 250 ML PEN BTL ONE (13:21)
[2021-11-07] MEDS ORDERED: ONDANSETRON HCL INJ 2MG/ML 2ML 2 MG/ML VIAL ONE (13:21)
[2021-11-07] MEDS ORDERED: POVIDONE IODINE 0.05% 0.05 % ML PO ONE (13:21)
[2021-11-07] MEDS ORDERED: LIDOCAINE HCL 2% LOCAL INJ 5 ML SDV VIAL INJ ONE (13:21)
[2021-11-07] MEDS ORDERED: ROCURONIUM BROMIDE 10 MG/ML 5ML VIAL IV ONE (13:21)
[2021-11-07] MEDS ORDERED: NEOSTIGMINE 1 MG/ML 10ML VIAL ONE (13:21)
[2021-11-07] MEDS ORDERED: KETOROLAC TROMETHAMINE 30 MG/ML VIAL ONE (13:21)
[2021-11-07] MEDS ORDERED: PROPOFOL IV EMULSION 10 MG/ML 20 ML VIAL ONE (13:21)
[2021-11-07] MEDS ORDERED: DEXAMETHASONE SOD PHOS INJ 4 MG/ML SDV ONE (13:21)
[2021-11-07] MEDS ORDERED: ATROPINE SULFATE 1 MG/ML VIAL ONE (13:21)
[2021-11-08] VITALS (8 sets, daily range): BP systolic 151–171; BP diastolic 76–87
[2021-11-08 06:08] LABS: BASOPHILS % 0.3 % (0.0-1.0); EOSINOPHILS % 0.1 % (0.0-6.0); HEMATOCRIT 29.5 % (38.2-49.6); HEMOGLOBIN 9.4 g/dL (14.0-18.0); LYMPHOCYTES # (AUTO) 1.1 (1.0-3.2); LYMPHOCYTES % 12.2 % (18.0-39.1); MEAN CORPUSCULAR HEMOGLOBIN 29.5 pg (28-32); MEAN CORPUSCULAR HGB CONC 31.9 g/dL (31-35); MEAN CORPUSCULAR VOLUME 92.5 fL (81-99); MONOCYTES # (AUTO) 0.5 (0.2-0.8); MONOCYTES % 5.8 % (4.4-11.3); NEUTROPHILS # (AUTO) 7.3 (2.1-6.9); PLATELET COUNT 262 x10e3/uL (140-360); RED BLOOD COUNT 3.19 x10e6/uL (4.3-5.7); RED CELL DISTRIBUTION WIDTH 13.8 % (11.7-14.4)
[2021-11-08 06:28] LABS: INR 1.19; PROTHROMBIN TIME 16.1 seconds (11.9-14.5)
[2021-11-08 06:42] LABS: ALBUMIN 2.5 g/dL (3.5-5.0); ALBUMIN/GLOBULIN RATIO 0.8 (0.8-2.0); ANION GAP 15.2 mmol/L (8-16); CALCIUM 7.9 mg/dL (8.4-10.2); CREATININE, SERUM 1.49 mg/dL (0.72-1.25); POTASSIUM 4.2 mmol/L (3.5-5.1)
[2021-11-08] MEDS: Morphine 4mg INJECTION 4 MG/ML INJ IV PRN (10:29)
[2021-11-08] MEDS: ENOXAPARIN INJ 80 MG/0.8 ML SYR SC SCH (17:04)
[2021-11-09] VITALS: BP 154/78
[2021-11-09 04:00] VITALS: BP 170/96
[2021-11-09] MEDS: ENOXAPARIN INJ 80 MG/0.8 ML SYR SC SCH (05:09)
[2021-11-09] MEDS: ACETAMINOPHEN 325 MG TAB PO PRN (05:20)
[2021-11-09] MEDS: HYDRALAZINE HCL 20 MG/ML VIAL IV PRN (05:29)
[2021-11-09 06:28] LABS: INR 1.08
[2021-11-09 08:02] VITALS: BP 158/82
[2021-11-09 11:45] VITALS: BP 156/87
[2021-11-09] MEDS ORDERED: ONDANSETRON HCL 4 MG ORAL DISINTEGRATING TAB PO PRN (15:15)
[2021-11-09 15:43] VITALS: BP 175/80
== END 2021-11-09 17:16 | disposition home or self-care (01) | DRG 418 ==
LOC: ER 13:30 → ERHOLD 16:15 → MED/SURG2 19:37
PROVIDERS: ADMIT Family Medicine; ATTEND Family Medicine
PROC: 0FT44ZZ Resection of Gallbladder, Percutaneous Endoscopic Approach (ICD-10-PCS; principal; 2021-11-07 08:09)
DX: K85.90 Acute pancreatitis without necrosis or infection, unspecified (principal); K80.10 Calculus of gallbladder with chronic cholecystitis without obstruction; N17.9 Acute kidney failure, unspecified; E78.5 Hyperlipidemia, unspecified; G25.81 Restless legs syndrome; I25.10 Atherosclerotic heart disease of native coronary artery without angina pectoris; Z86.718 Personal history of other venous thrombosis and embolism; Z79.01 Long term (current) use of anticoagulants; Z79.899 Other long term (current) drug therapy; K76.0 Fatty (change of) liver, not elsewhere classified; D63.8 Anemia in other chronic diseases classified elsewhere; R74.01 Elevation of levels of liver transaminase levels; E88.09 Other disorders of plasma-protein metabolism, not elsewhere classified; E66.01 Morbid (severe) obesity due to excess calories; Z68.29 Body mass index [BMI] 29.0-29.9, adult; Z20.822 Contact with and (suspected) exposure to COVID-19
CPT/HCPCS: 0223U; 36415; 74177; 74181; 76705; 80053; 80061; 81001; 82150; 82607; 82746; 83540; 83690; 84466; 84484; 85025; 85045; 85610; 88304; 93005; 94799; 99283; C1713; J0360; J0461; J1100; J1650; J1885; J2001; J2270; J2405; J2543; J2710; J7030; J7121; Q9967